=== PATIENT | female | born 1955 | race Two or more races ===

== ENCOUNTER 2020-04-30 05:20 | Day surgery (SDC) | payer OTHER ==
[~2020-04-30 05:20] MED LIST: TRILIPIX45 MG PO
== END 2020-04-30 12:10 | disposition home or self-care (01) ==
LOC: CIR.AMB 05:20
PROVIDERS: ATTEND Obstetrics & Gynecology
DX: N84.0 Polyp of corpus uteri (principal); Z20.828 Contact with and (suspected) exposure to other viral communicable diseases